=== PATIENT | female | born 1995 | race Caucasian/White ===

== ENCOUNTER 2021-09-22 08:19 | Emergency (ER) | payer BC ==
[2021-09-22 09:11] LABS: ANION GAP 7.4 meq/L (7-15)
[2021-09-22] MEDS ORDERED: Ondansetron 4 MG/2 ML SDV IVPUSH ONE (09:14)
[2021-09-22] MEDS ORDERED: Sodium Chloride 0.9% 1,000 ML IV SCH (09:15)
[2021-09-22] MEDS ORDERED: Iopamidol 612 MG/ML 100 ML Bottle IVPUSH ONE (09:19)
[2021-09-22] MEDS ORDERED: HYDROmorphone 0.5 MG/0.5 ML Syringe IVPUSH ONE (10:21)
== END 2021-09-22 11:25 | disposition home or self-care (01) ==
LOC: LL.ED 08:19
DX: R10.9 Unspecified abdominal pain (principal)
CPT/HCPCS: 36415; 74019; 74177; 80053; 81001; 83735; 84703; 85025; 96361; 96374; 99284; 99284-25; J2405; J7030; Q9967